=== PATIENT | male | born 1985 | race Caucasian/White ===

== ENCOUNTER 2025-05-08 10:19 | Emergency (ER) | payer BC, OTHER ==
[~2025-05-08 10:19] MED LIST: Iopamidol 370 76% 100 ML VIAL ONE
[2025-05-08 10:55] LABS: #Basophils Less than 0.03 10x3/uL (0.0-0.2); #Eosinophils 0.04 10x3/uL (0.0-0.5); #Monocytes 0.57 10x3/uL (0.0-1.1); #Neutrophils 2.93 10x3/uL (1.5-8.4); %Basophils 0.4 % (0.0-2.0); %Eosinophils 0.7 % (0.0-6.0); %Lymphocytes 33.1 % (18.0-47.0); %Monocytes 10.7 % (0.0-10.0); %Neutrophils 54.9 % (40.0-75.0); Hematocrit 48.0 % (38.8-50.0); Hemoglobin 16.2 g/dL (13.5-17.5); Mean Corpuscular Hemoglobin 29.6 pg (27.0-33.0); Mean Corpuscular Volume 87.8 fL (81.2-95.1); Platelet Count 234 10x3/uL (150-450); Red Blood Cell (RBC) Count 5.47 10x6/uL (4.32-5.72); White Blood Cell (WBC) Count 5.34 10x3/uL (3.5-10.5)
[2025-05-08 11:25] LABS: ALT (SGPT) 31 U/L (Less than 45); AST (SGOT) 34 U/L (11-34); Albumin 4.5 g/dL (3.1-4.5); Alkaline Phosphatase 67 U/L (40-110); Anion Gap 12 mmol/L (10-20); BUN (Urea Nitrogen) 23 mg/dL (8.9-20.6); Bilirubin, Total 0.6 mg/dL (0.3-1.2); CK (CPK) 159 U/L (30-200); Calc. Creatinine Clearance 0 mL/min (70-130); Calcium 9.1 mg/dL (7.8-10.44); Carbon Dioxide 25 mmol/L (22-29); Chloride 106 mmol/L (98-107); Globulin 2.8 g/dL (2.4-3.5); Glucose 117 mg/dL (70-105); Potassium 3.9 mmol/L (3.5-5.1); Sodium 139 mmol/L (136-145)
[2025-05-08] MEDS ORDERED: Metoclopramide HCl 10 MG (2 mL) VIAL ONE (11:58)
[2025-05-08] MEDS ORDERED: Ketorolac Tromethamine 30 MG (1 mL) VIAL ONE (11:58)
== END 2025-05-08 13:02 | disposition home or self-care (01) ==
LOC: CSHERS 10:19
DX: R51.9 Headache, unspecified (principal); R55 Syncope and collapse
CPT/HCPCS: 70496; 70498; 80053; 82550; 85025; 93005; 96365; 96375; J1885; J2765